=== PATIENT | female | born 2000 | race Caucasian/White ===

== ENCOUNTER 2022-08-06 12:59 | Emergency (ER) | payer OTHER ==
[~2022-08-06] VITALS: Ht 152.4 cm; Wt 65.8 kg
[2022-08-06 14:15] LABS: Influenza A, PCR NEGATIVE (NEGATIVE); Influenza B, PCR NEGATIVE (NEGATIVE); Resp Syncytial Virus, PCR NEGATIVE (NEGATIVE)
[2022-08-06 14:20] LABS: SARS-Cov-2 (COVID-19) PCR, MMC POSITIVE (NEGATIVE)
== END 2022-08-06 13:32 | disposition home or self-care (01) ==
LOC: ER 12:59
PROVIDERS: Physician Assistant
DX: U07.1 COVID-19 (principal); Z88.2 Allergy status to sulfonamides
CPT/HCPCS: 0241U; 99283; A9270

== ENCOUNTER 2023-08-29 14:36 | Emergency (ER) | payer OTHER ==
[~2023-08-29] VITALS: Ht 152.4 cm; Wt 74.4 kg
[~2023-08-29 14:36] MED LIST: CEPH500 PO; ONDA4ODT MM
[2023-08-29 14:54] VITALS: BP 151/86
== END 2023-08-29 16:23 | disposition home or self-care (01) ==
LOC: ER 14:36
DX: O20.9 Hemorrhage in early pregnancy, unspecified (principal); Z3A.01 Less than 8 weeks gestation of pregnancy; Z88.2 Allergy status to sulfonamides
CPT/HCPCS: 76801; 76817; 84702; 86900; 86901; 99284-25

== ENCOUNTER → 2023-11-19 | Outpatient (CLI) | payer OTHER ==
[2023-11-19 22:11] LABS: Bacterial Vaginosis PCR Negative (NEGATIVE); Candida Group, PCR NOT DETECTED (NOT DETECT)
[2023-11-19 22:12] LABS: Candida glabrata-krusei, PCR DETECTED (NOT DETECT)
== END | disposition home or self-care (01) ==
LOC: LAB SHORT 17:50 → LAB 17:50
PROVIDERS: Advanced Practice Midwife
DX: O23.599 Infection of other part of genital tract in pregnancy, unspecified trimester (principal)
CPT/HCPCS: 87481; 87661; 87801

== ENCOUNTER 2024-04-08 17:25 | Inpatient (IN) | payer OTHER ==
[~2024-04-08] VITALS: Ht 149.9 cm; Wt 92.3 kg
[2024-04-08] VITALS (13 sets, daily range): BP systolic 110–135; BP diastolic 60–86
[2024-04-08 17:56] LABS: BASOPHILS ABSOLUTE AUTO 0.03 K/mm3 (0.00-0.23); BASOPHILS PERCENT AUTO 0 % (0-2); EOSINOPHILS ABSOLUTE AUTO 0.04 K/mm3 (0.00-0.68); EOSINOPHILS PERCENT AUTO 0 % (0-6); Hematocrit 36.9 % (33.0-51.0); Hemoglobin 12.2 g/dL (11.5-16.0); IMMATURE GRAN ABSOLUTE AUTO 0.06 K/mm3 (0.00-0.10); IMMATURE GRAN PERCENT AUTO 1 % (0-1); LYMPHOCYTES ABSOLUTE AUTO 2.42 K/mm3 (0.84-5.20); LYMPHOCYTES PERCENT AUTO 21 % (21-46); MONOCYTES ABSOLUTE AUTO 0.91 K/mm3 (0.16-1.47); MONOCYTES PERCENT AUTO 8 % (4-13); Mean Corpuscular HGB 27.1 pg (26.0-34.0); Mean Corpuscular HGB Conc 33.1 g/dL (31.5-36.5); Mean Corpuscular Volume 82 fL (80-100); Mean Platelet Volume 11.8 fL (9.1-12.4); NEUTROPHILS ABSOLUTE AUTO 8.31 K/mm3 (1.96-9.15); NEUTROPHILS PERCENT AUTO 71 % (41-73); Platelet Count 283 K/mm3 (150-400); RDW Coefficient Variation 13.6 % (11.7-14.2); RDW Standard Deviation 39.8 fL (35.1-46.3); Red Blood Cell Count 4.51 M/mm3 (3.80-5.20); White Blood Cell Count 11.77 K/mm3 (4.00-11.30)
[2024-04-08 18:23] LABS: Albumin, Blood 2.5 g/dL (3.4-5.0); Albumin/Globulin Ratio 0.6 (0.8-1.8); Bilirubin, Total 0.4 mg/dL (0.1-1.0); Bun/Creatinine Ratio 15.6 (12.0-20.0); Calcium, Blood 8.8 mg/dL (8.5-10.1); Creatinine, Blood 0.58 mg/dL (0.40-1.00); Potassium, Blood 4.1 mmol/L (3.5-5.5); Total Protein, Blood 6.5 g/dL (6.4-8.2)
[2024-04-08 18:36] LABS: Creatinine, Urine Random 64.8 mg/dL (27.00-270.00); Protein, Urine Random 41.1 mg/dL (0.0-11.9); Protein/Creat Ratio, Ur Random 0.6
[2024-04-08] MEDS ORDERED: ePHEDrine Sulfate 50 MG/ML 1ML Injection XX PRN (19:05)
[2024-04-08] MEDS ORDERED: FentaNYL 2mcg/ml-Bup 0.1% Epd 250 ML EPI PRN (19:05)
[2024-04-08] MEDS ORDERED: Lactated Ringer's 1,000 ML IV PRN ×3 (19:05)
[2024-04-08] MEDS ORDERED: Methylergonovine Maleate 0.2MG / ML 1ML Amp IM PRN (19:05)
[2024-04-08] MEDS ORDERED: Misoprostol 200 MCG Tab BC PRN (19:05)
[2024-04-08] MEDS ORDERED: OXYTOCIN/RINGER'S LACTATE 500 ML IV PRN (19:05)
[2024-04-08] MEDS ORDERED: Oxytocin 10 Unit / ML Vial IM PRN (19:05)
[2024-04-08] MEDS ORDERED: Carboprost Tromethamine 250 MCG/ML 1ML Amp IM PRN (19:05)
[2024-04-08] MEDS ORDERED: Tranexamic Acid 100 ML IV SCH (19:05)
[2024-04-08] MEDS ORDERED: Misoprostol 200 MCG Tab PR PRN (19:05)
[2024-04-08] MEDS ORDERED: Ondansetron HCl 2 MG / ML 2ML Vial IV PRN (19:10)
[2024-04-08] MEDS ORDERED: Calcium Carbonate 500 MG Tab Chew PO PRN (19:10)
[2024-04-08] MEDS ORDERED: Acetaminophen 500 MG Tab PO PRN (19:10)
[2024-04-08] MEDS ORDERED: Misoprostol 25 MCG Tab PO SCH (20:00)
[2024-04-08] MEDS ORDERED: Zolpidem Tartrate 10 MG Tab PO PRN (21:05)
[2024-04-08] MEDS ORDERED: FentaNYL Citrate 50 MCG/ML 2 ML Injection IV PRN (21:05)
[2024-04-09] VITALS (56 sets, daily range): BP systolic 94–153; BP diastolic 49–102
[2024-04-09] MEDS ORDERED: Lanolin Cream TOP PRN (13:30)
[2024-04-09] MEDS ORDERED: Docusate Sodium 100 MG Cap PO PRN (13:30)
[2024-04-09] MEDS ORDERED: Witch Hazel/Glycerin PADS TOP PRN (13:30)
[2024-04-09] MEDS ORDERED: Ibuprofen 400 MG Tab PO PRN (13:30)
[2024-04-09] MEDS ORDERED: Benzocaine Topical Anesthetic Spray 60GM TOP PRN (13:35)
[2024-04-09] MEDS ORDERED: OXYTOCIN/RINGER'S LACTATE 500 ML IV SCH (13:35)
[2024-04-09] MEDS ORDERED: Acetaminophen 325 MG TABLET PO PRN (13:35)
[2024-04-09] MEDS ORDERED: Lactated Ringer's 1,000 ML IV SCH (13:35)
[2024-04-09] MEDS ORDERED: Ketorolac Tromethamine 30mg Vial IV PRN (13:35)
[2024-04-09] MEDS ORDERED: Methylergonovine Maleate 0.2MG / ML 1ML Amp IM PRN (13:35)
[2024-04-09] MEDS ORDERED: Misoprostol 200 MCG Tab BC PRN (13:40)
[2024-04-10 01:00] VITALS: BP 130/81
[2024-04-10 03:55] VITALS: BP 121/73
[2024-04-10 06:52] LABS: Hematocrit 32.3 % (33.0-51.0); Hemoglobin 10.5 g/dL (11.5-16.0); Mean Corpuscular HGB 26.7 pg (26.0-34.0); Mean Corpuscular HGB Conc 32.5 g/dL (31.5-36.5); Mean Corpuscular Volume 82 fL (80-100); Mean Platelet Volume 11.7 fL (9.1-12.4); Platelet Count 233 K/mm3 (150-400); RDW Coefficient Variation 13.8 % (11.7-14.2); RDW Standard Deviation 41.1 fL (35.1-46.3); Red Blood Cell Count 3.93 M/mm3 (3.80-5.20); White Blood Cell Count 14.77 K/mm3 (4.00-11.30)
[2024-04-10 07:17] LABS: Albumin, Blood 2.3 g/dL (3.4-5.0); Albumin/Globulin Ratio 0.6 (0.8-1.8); Bilirubin, Total 0.4 mg/dL (0.1-1.0); Calcium, Blood 9.1 mg/dL (8.5-10.1); Creatinine, Blood 0.56 mg/dL (0.40-1.00); Globulin, Blood 3.6 g/dL (2.2-4.0); Potassium, Blood 3.9 mmol/L (3.5-5.5); Total Protein, Blood 5.9 g/dL (6.4-8.2)
[2024-04-10 07:32] VITALS: BP 122/76
[2024-04-10] MEDS ORDERED: Prenatal Vit/FE Fumarate/FA 1 Tab PO SCH (09:00)
[2024-04-10 14:27] VITALS: BP 134/75
== END 2024-04-10 14:40 | disposition home or self-care (01) | DRG 768 ==
LOC: BC 17:25 → OBS 17:25 → BC 17:26 → OBS 18:48 → BC 18:48
PROVIDERS: ADMIT Advanced Practice Midwife
PROC: 10E0XZZ Delivery of Products of Conception, External Approach (ICD-10-PCS; principal; 2024-04-09)
PROC: 0UQJXZZ Repair Clitoris, External Approach (ICD-10-PCS; 2024-04-09)
PROC: 0KQM0ZZ Repair Perineum Muscle, Open Approach (ICD-10-PCS; 2024-04-09)
PROC: 3E0R3BZ Introduction of Anesthetic Agent into Spinal Canal, Percutaneous Approach (ICD-10-PCS; 2024-04-09)
PROC: 00HU33Z Insertion of Infusion Device into Spinal Canal, Percutaneous Approach (ICD-10-PCS; 2024-04-09)
PROC: 10907ZC Drainage of Amniotic Fluid, Therapeutic from Products of Conception, Via Natural or Artificial Opening (ICD-10-PCS; 2024-04-09)
DX: O14.94 Unspecified pre-eclampsia, complicating childbirth (principal); Z37.0 Single live birth; Z3A.37 37 weeks gestation of pregnancy; O99.324 Drug use complicating childbirth; F12.90 Cannabis use, unspecified, uncomplicated; O99.344 Other mental disorders complicating childbirth; F41.8 Other specified anxiety disorders; O99.214 Obesity complicating childbirth; O70.1 Second degree perineal laceration during delivery
CPT/HCPCS: 36415; 51702; 59025; 80053; 82570; 84156; 85025; 85027; 86850; 86900; 86901; 86923; 87081; 87150; 99213; A9270; J1885; J2405; J2590; J3010; J7120

== ENCOUNTER → 2024-05-18 | Outpatient (CLI) | payer OTHER | END | disposition home or self-care (01) | LOC: LAB 15:48 → LAB SHORT 15:48 | PROVIDERS: Advanced Practice Midwife | DX: Z01.419 Encounter for gynecological examination (general) (routine) without abnormal findings (principal) | CPT/HCPCS: G0123 ==